=== PATIENT | female | born 1995 | race Caucasian/White ===

== ENCOUNTER 2024-07-18 19:06 | Emergency (ER) | payer OTHER ==
[~2024-07-18] VITALS: Ht 162.6 cm; Wt 118.2 kg
[2024-07-18 19:21] VITALS: TEMP 98.2
[2024-07-18] MEDS: AMOX TR/POT CLAV 875 MG/125 MG TABLET PO ONE (20:40)
[2024-07-18] MEDS: PERTUSS(ACELL),DIPH,TET/PF 0.5 ML SYRINGE [ADULT] IM. ONE (20:40)
[2024-07-18 21:00] VITALS: BP 125/71; PULSE 77; RESP 15; O2SAT 99
[2024-07-18] MEDS ORDERED: AMOX-457 PO (21:12)
== END 2024-07-18 21:21 | disposition home or self-care (01) ==
LOC: EMS 19:13
DX: S61.411A Laceration without foreign body of right hand, initial encounter (principal); W26.8XXA Contact with other sharp object(s), not elsewhere classified, initial encounter; Y93.89 Activity, other specified; Y92.89 Other specified places as the place of occurrence of the external cause; Y99.8 Other external cause status
CPT/HCPCS: 12002; 90471; 90715; 99283